=== PATIENT | male | born 1960 | race Caucasian/White ===

== ENCOUNTER 2019-06-28 00:30 | Emergency (ER) | payer BC ==
[~2019-06-28] VITALS: Ht 165.1 cm; Wt 72.6 kg
[2019-06-28] VITALS (10 sets, daily range): BP systolic 115–152; BP diastolic 50–98
--- NOTE | 2019-06-28 00:52 | ER.PDOC ---
General Chief Complaint: Requesting Medical Care Stated Complaint: RIB PAIN Time seen by MD: 00:50 Source: patient, family Exam Limitations: no limitations History of Present Illness Initial Comments Patient comes to the ED, brought in by family after sustaining fall and blunt left thoracic injury from climbing a stovepipe. Unclear the exact height of the fall, but no LOC or altered mental status. Patient mainly complaining of left rib pain, unable to move. States that he fell and hit a couch on the way down. Denies abdominal discomfort, nausea, vomiting. Past Medical History Medical History: hypertension Surgical History: other (herniorrhaphy) Family History Significant Family History: no pertinent family hx Reviewed Nursing Reviewed: Vital Signs, Abn. Noted, Nursing Assessment Review of Systems All Other Systems: Reviewed and Negative Physical Exam General Appearance: No Apparent Distress Comments General: cooperative, grunting, groaning, left lateral recumbent position on the gurney HEENT: right parietal abrasion, TTP, EOMI, sclerae anicteric without injection, oropharynx - pink and moist Neck: supple, no nuchal rigidity appreciated, nontender to palpation CV: RRR, S1, S2, no rubs, clicks, or murmurs Chest wall: nontender to palpation over bilateral clavicles, sternum, ant ribs, but left posterior CREPITUS diffusely, abrasion, exquisitely TTP, ? palpable fracture on the left Lungs: r�les on left side, wheezes, or rhonchi, no increased work of breathing, no retractions noted Abdomen: soft, ND, NT, no rebound/guarding, normoactive bowel sounds Pelvis: stable to AP and lateral compression, and to rock Extremities: no clubbing, cyanosis, or edema, nontender to palpation bilateral upper and lower extremities, all segments and joints Back: no CTLS spinous process tenderness to palpation Skin: warm, dry, Neuro: no focal deficits noted, CN II-XII grossly intact to inspection, moves all extremities well Psych: normal affect [place] Coma Score Best Eye Response: (4) Open Spontaneously Best Verbal Response: (5) Oriented Best Motor Response: (6) Obeys Commands Results/Orders Results/Orders Orders - SHARIF BARTLETT MD Ct Head Wo Contrast (06/28/19 00:52) Ct Cervical Spine (06/28/19 00:52) Ct Chest W Iv Contrast (06/28/19 00:52) Ct Abd/Pel With Iv Contrast (06/28/19 00:52) Cbc With Auto Diff (06/28/19 00:54) Comprehensive Metabolic Panel (06/28/19 00:54) PT (06/28/19 00:54) Hydromorphone Inj (Dilaudid) (06/28/19 01:00) 0.9 % Sodium Chloride (Ns 1000ml) (06/28/19 01:00) Methocarbamol (Robaxin) (06/28/19 00:54) Dexamethasone (Decadron) (06/28/19 00:54) Ondansetron Hcl (Zofran) (06/28/19 00:55) Oxygen By Face Mask(Notify Rt) (06/28/19 00:56) Cardiac Monitoring (06/28/19 00:56) 0.9 % Sodium Chloride (Ns 1000ml) (06/28/19 01:05) Dexamethasone (Decadron) (06/28/19 01:05) Methocarbamol (Robaxin) (06/28/19 01:05) Hydromorphone Inj (Dilaudid) (06/28/19 01:06) Ondansetron Hcl (Zofran) (06/28/19 01:06) Hydromorphone Inj (Dilaudid) (06/28/19 02:30) Fentanyl Citrate/Pf (Sublimaze) (06/28/19 02:27) Fentanyl Citrate/Pf (Sublimaze) (06/28/19 02:28) Promethazine Hcl (Phenergan) (06/28/19 03:00) Promethazine Hcl (Phenergan) (06/28/19 02:31) 0.9 % Sodium Chloride (Ns 1000ml) (06/28/19 03:00) 0.9 % Sodium Chloride (Ns 1000ml) (06/28/19 02:31) Vital Signs Date Time Temp Pulse Resp B/P (MAP) Pulse Ox O2 Delivery O2 Flow Rate FiO2 06/28/19 03:21 94 24 152/93 (112) 96 Nasal Canula 4.00 06/28/19 02:45 89 24 142/98 (113) 92 Nasal Canula 2.00 06/28/19 02:15 78 24 138/81 (100) 90 Nasal Canula 2.00 06/28/19 02:00 79 24 137/82 (100) 92 Nasal Canula 2.00 06/28/19 01:45 70 24 138/88 (105) 92 Nasal Canula 2.00 06/28/19 01:15 73 24 127/89 (102) 92 Nasal Canula 2.00 06/28/19 00:42 97.7 75 24 06/28/19 00:42 97.7 75 24 115/50 (71) 89 Room Air 06/28/19 00:42 97.7 75 24 89 Room Air 06/28/19 00:42 24 Administered Medications Medications (Trade) Dose Ordered Sig/Jj Route PRN Reason Start Time Stop Time Status Last Admin Dose Admin Dexamethasone (Decadron) 12 mg STAT STAT PO 06/28/19 00:54 06/28/19 00:56 DC 06/28/19 01:26 12 MG Fentanyl Citrate (Sublimaze) 50 mcg STAT STAT IV 06/28/19 02:27 06/28/19 02:29 DC 06/28/19 03:07 50 MCG Hydromorphone HCl (Dilaudid) 1 mg OT ONCE IV 06/28/19 01:00 06/28/19 01:01 DC 06/28/19 01:26 1 MG Hydromorphone HCl (Dilaudid) 1 mg OT ONCE IV 06/28/19 02:30 06/28/19 02:31 DC 06/28/19 02:10 1 MG Methocarbamol (Robaxin) 1,000 mg STAT STAT PO 06/28/19 00:54 06/28/19 00:56 DC 06/28/19 01:26 1,000 MG Ondansetron HCl (Zofran) 4 mg STAT STAT IV 06/28/19 00:55 06/28/19 00:56 DC 06/28/19 01:26 4 MG Promethazine HCl (Phenergan) 25 mg OT ONCE IV 06/28/19 03:00 06/28/19 03:01 DC 06/28/19 03:07 25 MG Sodium Chloride 1,000 ml @ 100 mls/hr Q10H ONCE IV 06/28/19 03:00 06/28/19 12:59 06/28/19 03:07 100 MLS/HR Sodium Chloride 1,000 ml @ 1,000 mls/hr Q1H ONCE IV 06/28/19 01:00 06/28/19 01:59 DC 06/28/19 01:26 1,000 MLS/HR Laboratory Tests Test 06/28/19 01:06 White Blood Count 15.6 10^3/uL (4.5-11.0) H Red Blood Count 5.04 10^6/uL (4.50-5.90) Hemoglobin 16.2 g/dL (13.9-16.3) Hematocrit 45.5 % (37.0-53.0) Mean Corpuscular Volume 90.3 fL (78-100) Mean Corpuscular Hemoglobin 32.1 pg (26-34) Mean Corpuscular Hemoglobin Concent 35.6 g/dL (33-37) Red Cell Distribution Width 13.8 % (11.5-14.5) Platelet Count 378 10^3/uL (150-400) Mean Platelet Volume 9.4 fL (7.8-11.0) Neutrophils (%) (Auto) 84.6 % (41.0-85.0) Lymphocytes (%) (Auto) 9.4 % (24.0-44.0) L Monocytes (%) (Auto) 4.6 % (5.0-12.0) L Neutrophils # (Auto) 13.2 10^3/uL (1.8-7.7) H Lymphocytes # (Auto) 1.5 10^3/uL (1.0-4.8) Monocytes # (Auto) 0.7 10^3/uL (0.3-0.8) Absolute Immature Granulocyte (auto 0.07 10^3 u/L (0-2) Immature Granulocytes % 0.40 % (0.00-0.50) Eosinophils % 0.6 % (0.0-5.0) Basophils % 0.4 % (0.0-0.2) H Basophils # 0.1 10^3/uL (0.0-0.1) Eosinophil Count 0.1 10^3/uL (0.0-0.2) Prothrombin Time 10.1 SEC (9.4-11.5) Prothrombin Time INR (Non-Therap) 1.0 Sodium Level 137 mmol/L (132-145) Potassium Level 3.6 mmol/L (3.6-5.2) Chloride Level 102.0 mmol/L (96-109) Carbon Dioxide Level 24.8 mmol/L (20.0-32) Anion Gap 13.8 Blood Urea Nitrogen 11 mg/dL (7-18) Creatinine 1.24 mg/dL (0.59-1.40) Estimated GFR () 72.0 (>/=60) BUN/Creatinine Ratio 8.0 Glucose Level 125 mg/dL (70-110) H Calcium Level 8.9 mg/dL (8.4-10.5) Total Bilirubin 0.3 mg/dL (0.2-1.0) Aspartate Amino Transferase (AST) 20 U/L (0-35) Alanine Aminotransferase (ALT) 11 U/L (12-78) L Alkaline Phosphatase 60 U/L (50-136) Total Protein 7.6 g/dL (6.4-8.2) Albumin 4.0 g/dL (3.4-5.0) Globulin 3.6 Progress Progress Patient findings consistent with fall, left rib fractures, pulmonary contusion, pneumothorax, solid organ abdominal injury, or other. Patient placed on the cardiac technician, given supplemental oxygen for his hypoxemia. Labs/UA obtained and given one litre bolus normal saline. Given analgesics, anti-spasmodics, anti-inflammatories to help with deep breathing. Sent for trauma scans w/ IV contrast noted to be positive for left sided rib fractures, displaced, moderate pneumothorax, more at the base, NOT tension pneumothorax, and some pulmonary contusion. Ultimately needed several doses of analgesics, bumped from hydromorphone up to fentanyl 50 mcg IVP. Maintained good oxygenation on the nasal cannula, finally resting comfortably. Per conv / [facility], accepted in transfer to ANUP Gomez for higher level of care and definitive management at [facility]. Departure Time of Disposition: 02:58 Disposition: 05 DISCH/XFER OTHER Impression: Primary Impression: Multiple fractures of ribs, left side, initial encounter for closed fracture Additional Impressions: Pneumothorax, left Left pulmonary contusion Qualified Codes: S27.321A - Contusion of lung, unilateral, initial encounter Fall Qualified Codes: W19.XXXA - Unspecified fall, initial encounter Condition: Improved Referrals: [facility] (PCP) PRIMARY CARE PROVIDER Duration or Time Spent with Pa: 75 SHARIF BARTLETT MD Jun 28, 2019 00:52
[2019-06-28] MEDS ORDERED: ROBAXIN PO STA (00:54)
[2019-06-28] MEDS ORDERED: DECADRON PO STA (00:54)
[2019-06-28] MEDS ORDERED: ZOFRAN IV STA (00:55)
[2019-06-28] MEDS ORDERED: NS 1000ML 1,000 ML IV ONE ×2 (01:00→03:00)
[2019-06-28] MEDS ORDERED: DILAUDID IV ONE ×2 (01:00→02:30)
[2019-06-28] MEDS ORDERED: ROBAXIN ONE (01:05)
[2019-06-28] MEDS ORDERED: DECADRON ONE (01:05)
[2019-06-28] MEDS ORDERED: NS 1000ML 1,000 ML ONE ×2 (01:05→02:31)
[2019-06-28] MEDS ORDERED: DILAUDID ONE (01:06)
[2019-06-28] MEDS ORDERED: ZOFRAN ONE (01:06)
[2019-06-28 01:10] LABS: BASOPHIL # 0.1 10^3/uL (0.0-0.1); BASOPHIL % 0.4 % (0.0-0.2); EOSINOPHIL # 0.1 10^3/uL (0.0-0.2); EOSINOPHIL % 0.6 % (0.0-5.0); HEMOGLOBIN 16.2 g/dL (13.9-16.3); LYMPHOCYTES # 1.5 10^3/uL (1.0-4.8); LYMPHOCYTES % 9.4 % (24.0-44.0); MEAN CELL HGB 32.1 pg (26-34); MEAN CELL HGB CONCENTRATION 35.6 g/dL (33-37); MEAN CORP VOLUME 90.3 fL (78-100); MEAN PLATELET VOLUME 9.4 fL (7.8-11.0); MONOCYTES # 0.7 10^3/uL (0.3-0.8); MONOCYTES % 4.6 % (5.0-12.0); NEUTROPHIL # 13.2 10^3/uL (1.8-7.7); NEUTROPHILS % 84.6 % (41.0-85.0); RED CELL DISTRIBUTION WIDTH 13.8 % (11.5-14.5); WHITE BLOOD CELL 15.6 10^3/uL (4.5-11.0)
--- NOTE | 2019-06-28 01:25 | NUR ---
CT Patient gone to CT
[2019-06-28 01:36] LABS: CALCIUM 8.9 mg/dL (8.4-10.5); CARBON DIOXIDE 24.8 mmol/L (20.0-32)
--- NOTE | 2019-06-28 01:50 | NUR ---
CT Patient back from CT
--- NOTE | 2019-06-28 02:15 | DIREP ---
PROCEDURE:CT HEAD OR BRAIN W/O CONTRAST COMPARISON:None. INDICATIONS:Fall, head trauma TECHNIQUE:CT images were created without intravenous contrast. FINDINGS: VENTRICLES: Unremarkable ventricular size and morphology for the patient's age. CEREBRUM: No apparent mass or mass effect. No acute intracranial hemorrhage or abnormal extra-axial fluid collections. No CT evidence to suggest acute large vascular territorial ischemia. CEREBELLUM: Unremarkable for the patient's age. BRAINSTEM: Normal. SKULL: No depressed fracture is identified. SINUSES: No significant paranasal sinus disease OTHER: Diffuse gas within the soft tissues of the skullbase and imaged upper neck. CONCLUSION: 1. No acute intracranial abnormality. 2. Diffuse gas within the soft tissues of the skullbase and imaged upper neck. Dictated by: Munir Huynh M.D. On 06/28/2019 at 02:10 AM
--- NOTE | 2019-06-28 02:21 | DIREP ---
PROCEDURE: CT SPINE CERVICAL W/O COMPARISON:None. INDICATIONS:Fall, trauma, pain FINDINGS: ALIGNMENT:Straightening of the normal cervical lordosis may be positional. Vertebral body alignment is maintained. Facet joints are intact. VERTEBRAE:No compression deformity or acute fracture is identified. PARASPINAL AREA:Diffuse gas within the soft tissues of the cervical region. CERVICAL DISC LEVELS Moderate degenerative disc disease at C5-C6 and C6-C7 with posterior disc osteophyte complexes. This appears to result in mild spinal stenosis at C5-C6 and potential borderline spinal stenosis at C6-C7. There is fairly high-grade bilateral neural foraminal encroachment C5-C6 and C6-C7. CONCLUSION: 1. No acute osseous abnormality or vertebral body malalignment. 2. Degenerative disc and spine disease with areas of apparent spinal stenosis and potentially clinically significant neural foraminal encroachment as discussed above. 3. Diffuse gas within the soft tissues of the imaged cervical region. Dictated by: Munir Huynh M.D. On 06/28/2019 at 02:15 AM
[2019-06-28] MEDS ORDERED: SUBLIMAZE IV STA (02:27)
[2019-06-28] MEDS ORDERED: SUBLIMAZE ONE (02:28)
[2019-06-28] MEDS ORDERED: PHENERGAN ONE (02:31)
--- NOTE | 2019-06-28 02:45 | DIREP ---
PROCEDURE:CT CHEST ABDOMEN PELVIS W/CONTRAST COMPARISON:None. INDICATIONS:Fall, left rib trauma, crepitus, ? rib fx, pneumothorax, pain TECHNIQUE:Axial images were obtained through the chest, abdomen and pelvis during the IV administration of nonionic contrast. No oral contrast was administered. Sagittal and coronal reconstructions were performed from source images. FINDINGS: LUNGS:Ground-glass opacities within the left richie thorax are most prominent within the left lower lobe as well as the lingula and posterior aspect of the left upper lobe. Findings may reflect a combination of atelectasis and pulmonary contusion. Infiltrate is considered less likely. Mild presumed atelectasis within the right richie thorax. There is moderate left pneumothorax, most prominent at the left lung base. This is a result of numerous displaced left rib fractures. There is associated extensive subcutaneous emphysema throughout the soft tissues of the left richie thorax as well as within the soft tissues of the anterior right richie thorax, extending into the cervical region. CARDIAC:The heart is not significantly enlarged. There is no pericardial effusion. MEDIASTINUM:Pneumomediastinum. The thyroid gland appears grossly unremarkable. No suspicious mediastinal lymphadenopathy. No mediastinal hematoma. Small hiatal hernia. AORTA:No aneurysmal dilatation. No dissection. CHEST WALL:There are displaced fractures of the left 8th and 9th ribs posteriorly with minimally displaced fractures of the left 10th and 11th ribs posteriorly. There are additional fractures of the left transverse processes at T9 and T10. Diffuse subcutaneous emphysema as discussed above. LIVER:Small hepatic cysts. No suspicious focal hepatic lesion. BILIARY:The gallbladder is nondistended. No radiopaque calculi. No significant intrahepatic or extrahepatic biliary ductal dilatation. PANCREAS:No suspicious pancreatic abnormality. SPLEEN:The spleen is not significantly enlarged. No focal splenic lesion identified. ADRENALS:The adrenal glands are unremarkable. URINARY TRACT:No hydronephrosis or suspicious renal lesion. AORTA/VASCULAR:No aneurysmal dilatation. RETROPERITONEUM:No suspicious retroperitoneal lymphadenopathy. BOWEL/MESENTERY:No evidence for small bowel obstruction. Apparent complex fluid within the region of the cecum. The colon appears otherwise grossly unremarkable. Normal appendix. No free air. ABDOMINAL WALL:Diffuse subcutaneous emphysema. PELVIC ORGANS:Urinary bladder is not significantly distended. No free fluid. BONES:Multiple left rib fractures with additional fractures of the transverse processes within the lower thoracic spine as detailed above. CONCLUSION: 1. Multiple displaced left rib fractures with associated moderate left pneumothorax, pneumomediastinum and diffuse chest wall emphysema. Ground-glass opacities within the left hemithorax may reflect a combination of atelectasis and pulmonary contusion. 2. No acute intra-abdominal abnormality is identified. No perisplenic or perinephric hematoma. No retroperitoneal hematoma. 3. Additional findings as discussed above. Dictated by: Munir Huynh M.D. On 06/28/2019 at 02:27 AM
--- NOTE | 2019-06-28 02:48 | NUR ---
SUKUMAR Dr. Metzger on phone with [facility] transfer line
[2019-06-28] MEDS ORDERED: PHENERGAN IV ONE (03:00)
--- NOTE | 2019-06-28 03:20 | NUR ---
Dispatch Disptach notifed of transfer to [facility]
--- NOTE | 2019-06-28 03:31 | NUR ---
Report Report given to Melvi at [facility]
--- NOTE | 2019-06-28 03:35 | NUR ---
[facility] at patients bedside. This nurse along with EMS went to transfer patient to EMS [facility]. [place] patients chest on left side noticed subcutaneous crackles. Notifed Dr. Metzger.
[2019-06-28] MEDS ORDERED: LIDOCAINE 1% VIAL ONE (03:43)
[2019-06-28] MEDS ORDERED: VERSED IV STA (03:43)
[2019-06-28] MEDS ORDERED: AMIDATE IV STA ×2 (03:43→06:13)
[2019-06-28] MEDS ORDERED: VERSED ONE (03:45)
--- NOTE | 2019-06-28 03:50 | NUR ---
Update Dr. Metzger at patients bedside ready for insertion of chest tube
--- NOTE | 2019-06-28 03:51 | NUR ---
Versed 5mg Versed given to patient via IV per Dr. Metzger verbal order
--- NOTE | 2019-06-28 03:51 | NUR ---
Vitals B/P: 145/91 HR: 98 Pulse Ox: 91% RR: 28
--- NOTE | 2019-06-28 03:56 | NUR ---
Etomidate 10mg Etomidate was given to patient IV per Dr. Metzger verbal order.
--- NOTE | 2019-06-28 03:56 | NUR ---
Chest Tube DR. Metzger successfully placed chest tube in left lung. 20F tube was used for placement.
[2019-06-28] MEDS ORDERED: WATER ONE (03:57)
--- NOTE | 2019-06-28 04:00 | NUR ---
Update Patient placed on chest tube drain and suction applied. Patient tolerated well.
--- NOTE | 2019-06-28 04:15 | NUR ---
Update Patient vomited while RT bagging patient via ambu bag. Patient turned to right side and suction.
--- NOTE | 2019-06-28 04:20 | NUR ---
UPDATE PATIENT'S CALLED AND INFORMED OF PATIENT'S CONDITION.
--- NOTE | 2019-06-28 04:20 | NUR ---
Update Dr. Metzger verbal order to intubate patient. RT at patients bedside
--- NOTE | 2019-06-28 04:26 | NUR ---
Etomadate 10mg Etomadate via IV was given to patient per Dr. Metzger verbal order.
--- NOTE | 2019-06-28 04:27 | NUR ---
Rocuronium 50mg of Rocuronium was given to patient per Dr. Metzger verbal order
--- NOTE | 2019-06-28 04:29 | NUR ---
Intubation 1 attempt of intubation successful. Intubation done by Dr. Metzger. A 7 1/2 tube was placed and secured at 25 at the lip. Tube was secured by Barbara-RT Vitals: B/P: 130/87 HR: 120 RR: 19 O2: 96%
--- NOTE | 2019-06-28 04:36 | NUR ---
[facility] at patients bedside for chest X-Ray and tube placement for Chest tube, OG Tube, and Intubation Tube. Dr. Metzger reviewed X-Ray and determined all tubes were placed in the correct destination.
--- NOTE | 2019-06-28 04:55 | NUR ---
Departure Patient is in the care of [facility]. Patient is stable but in critical condition.
--- NOTE | 2019-06-28 04:57 | NUR ---
[facility] Updated Osvaldo at [facility] on patient.
--- NOTE | 2019-06-28 05:10 | NUR ---
03:55 91% sat, 03:56 95% sat on 5L, ambu used and jaw thrust, sat 93%, after intubation sats were 96%. Addendum: 06/28/19 at 0615 by Jelena Delvalle RRT RT Amended: Links added.
--- NOTE | 2019-06-28 05:21 | DIREP ---
PROCEDURE:CHEST 1 VIEW COMPARISON:[facility], CT, CT CHEST ABDOMEN PELVIS WITH CONTR, 06/28/2019, 01:34 AM. INDICATIONS:Status post left sided chest tube placement prior to EMS transport FINDINGS: LUNGS/PLEURA:Presumed mild bibasilar atelectasis. This is asymmetrically more prominent on the left. Potential tiny residual left apical pneumothorax demonstrating approximate 2-3 mm pleural separation. Evaluation is limited by diffuse subcutaneous emphysema. VASCULATURE:No pulmonary vascular congestion. CARDIAC:The heart is not significantly enlarged. MEDIASTINUM:Mediastinal contours appear within normal limits. The trachea is at midline. BONES:Multiple left-sided rib fractures noted. These are better evaluated on the previous CT. OTHER:Endotracheal tube terminates appropriately above the rozina. Nasogastric tube courses distal to the diaphragm. Left-sided chest tube terminates near the left hilar region. CONCLUSION: 1. Diffuse subcutaneous emphysema is most prominent within the left richie thorax, extending into the base of the neck. A left-sided chest tube is now present with potential tiny residual left apical pneumothorax. Presumed atelectasis at the lung bases, left greater than right. 2. Multiple left rib fractures are better evaluated on the previous CT. 3. Tubes and lines as discussed above. Dictated by: Munir Huynh M.D. On 06/28/2019 at 05:16 AM
[2019-06-28] MEDS ORDERED: ZEMURON IV STA (06:13)
== END 2019-06-28 04:55 | disposition short-term general hospital (02) ==
LOC: ER 00:30
DX: S22.42XA Multiple fractures of ribs, left side, initial encounter for closed fracture (principal); Z46.82 Encounter for fitting and adjustment of non-vascular catheter; S27.321A Contusion of lung, unilateral, initial encounter; S27.0XXA Traumatic pneumothorax, initial encounter; I10 Essential (primary) hypertension; Z98.890 Other specified postprocedural states; W17.89XA Other fall from one level to another, initial encounter; Y93.89 Activity, other specified; Y92.89 Other specified places as the place of occurrence of the external cause; Y99.8 Other external cause status
CPT/HCPCS: 31500; 32551; 36415; 70450; 71045; 71260; 72125; 74177; 80053; 85025; 85610; 96374; 96375; 96376; 99291; J1170; J2250; J2405; J2550; J3010; J3490; J7030 ×2; J8540; Q9967; J2001